=== PATIENT | female | born 1955 | race Two or more races ===

== ENCOUNTER 2019-12-21 08:16 | Outpatient (CLI) | payer OTHER | END 2019-12-21 08:37 | disposition home or self-care (01) | LOC: LAB 08:16 | DX: D50.8 Other iron deficiency anemias (principal); I10 Essential (primary) hypertension; D51.0 Vitamin B12 deficiency anemia due to intrinsic factor deficiency; D55.0 Anemia due to glucose-6-phosphate dehydrogenase [G6PD] deficiency; R97.0 Elevated carcinoembryonic antigen [CEA]; R97.8 Other abnormal tumor markers; R19.5 Other fecal abnormalities; E03.8 Other specified hypothyroidism; E06.3 Autoimmune thyroiditis; D51.3 Other dietary vitamin B12 deficiency anemia ==

== ENCOUNTER 2019-12-21 09:13 | Outpatient (CLI) | payer OTHER | END 2019-12-21 09:15 | disposition home or self-care (01) | LOC: MAMO-SONO 09:13 | DX: Z12.31 Encounter for screening mammogram for malignant neoplasm of breast (principal); Z87.898 Personal history of other specified conditions; D51.3 Other dietary vitamin B12 deficiency anemia; N63.10 Unspecified lump in the right breast, unspecified quadrant; N63.20 Unspecified lump in the left breast, unspecified quadrant ==

== ENCOUNTER 2020-06-29 08:24 | Emergency (ER) | payer OTHER ==
[~2020-06-29] VITALS: Ht 167.6 cm; Wt 86.2 kg
[2020-06-29] MEDS ORDERED: KETO10TA2 PO (11:57)
== END 2020-06-29 12:09 | disposition home or self-care (01) ==
LOC: ER 08:24
DX: S93.491A Sprain of other ligament of right ankle, initial encounter (principal); M25.571 Pain in right ankle and joints of right foot; X50.0XXA Overexertion from strenuous movement or load, initial encounter; Y93.01 Activity, walking, marching and hiking; Y92.018 Other place in single-family (private) house as the place of occurrence of the external cause; Y99.8 Other external cause status

== ENCOUNTER 2020-09-07 09:11 | Outpatient (CLI) | payer OTHER ==
[~2020-09-07 09:11] MED LIST: KETO10TA2 PO
== END 2020-09-07 09:19 | disposition home or self-care (01) ==
LOC: NUCLEAR 09:11
PROVIDERS: ATTEND Orthopaedic Surgery
DX: M81.0 Age-related osteoporosis without current pathological fracture (principal)

== ENCOUNTER 2023-01-21 10:33 | Outpatient (CLI) | payer OTHER | END 2023-01-21 15:00 | disposition home or self-care (01) | LOC: MAMO-SONO 10:33 | DX: D48.61 Neoplasm of uncertain behavior of right breast (principal); D48.62 Neoplasm of uncertain behavior of left breast ==

== ENCOUNTER 2025-02-08 11:03 | Outpatient (CLI) | payer OTHER | END 2025-02-08 11:07 | disposition home or self-care (01) | LOC: MAMO-SONO 11:03 | PROVIDERS: ATTEND Obstetrics & Gynecology | DX: N60.01 Solitary cyst of right breast (principal); N60.02 Solitary cyst of left breast; Z12.31 Encounter for screening mammogram for malignant neoplasm of breast ==